=== PATIENT | female | born 1965 | race Caucasian/White ===

== ENCOUNTER 2020-10-26 16:32 | Emergency (ER) | payer BC ==
[2020-10-26 16:50] VITALS: BP 137/89; PULSE 80
--- NOTE | 2020-10-26 17:48 | EDM.PDOC ---
ED HPI GENERAL MEDICAL PROBLEM - General Chief Complaint: Abdominal Pain Stated Complaint: ABD PAIN, LT SIDE Time Seen by Provider: 10/26/20 17:20 Source of Information: Reports: Patient History Limitations: Reports: No Limitations - History of Present Illness INITIAL COMMENTS - FREE TEXT/NARRATIVE: 55-year-old female who developed lower abdominal pain yesterday, took some ibup rofen last night and it improved, she slept okay but today its been worsening. No nausea or vomiting, 2 normal bowel movements. Some chills last night. Denies shortness of breath or chest pain. Today she felt like something "moved" in her left lower quadrant twice and it scared her so she thought she should have it checked out. No recent trauma, no exposure to illness. Onset: Gradual Duration: Day(s): (2 days of symptoms) Location: Reports: Abdomen (Lower abdomen, particularly on the left) Quality: Reports: Pressure, Sharp, Other (Fullness, pain with moving) Worsens with: Reports: Movement Associated Symptoms: Reports: Fever/Chills (Likely chills and fever overnight, none today), Malaise. Denies: Cough, Diaphoresis, Loss of Appetite, Nausea/Vomiting, Shortness of Breath, Weakness Abdomen Pain Score (Numeric/FACES): 2 - Related Data Allergies Allergy/AdvReac Type Severity Reaction Status Date / Time Sulfa (Sulfonamide Allergy Shortness Verified 10/26/20 16:46 Antibiotics) of Breath Home Meds: Home Meds NK [No Known Home Meds] 07/19/14 [History] Past Medical History HEENT History: Reports: Impaired Vision Cardiovascular History: Reports: Arrhythmia INSIDE [employer] History: Reports: Musculoskeletal History: Reports: Fracture - Past Surgical History GI Surgical History: Reports: Cholecystectomy Female Surgical History: Reports: Tubal Ligation Musculoskeletal Surgical History: Reports: ORIF Other Musculoskeletal Surgeries/Procedures:: surgery right foot Social & Family History - Tobacco Use Tobacco Use Status *Q: Current Every Day Tobacco User Years of Tobacco use: 25 Packs/Tins Daily: 0.5 - Caffeine Use Caffeine Use: Reports: Coffee - Alcohol Use Days Per Week of Alcohol Use: 7 Number of Drinks Per Day: 2 Total Drinks Per Week: 14 - Recreational Drug Use Recreational Drug Use: No ED ROS GENERAL - Review of Systems Review Of Systems: See Below Constitutional: Reports: Fever, Chills, Malaise HEENT: Reports: No Symptoms Respiratory: Denies: Shortness of Breath, Cough Cardiovascular: Denies: Chest Pain Endocrine: Denies: Fatigue GI/Abdominal: Reports: Abdominal Pain. Denies: Constipation, Diarrhea, Hematemesis, Hematochezia, Nausea, Vomiting : Reports: No Symptoms. Denies: Frequency, Urgency Musculoskeletal: Reports: No Symptoms Skin: Reports: No Symptoms Neurological: Reports: No Symptoms. Denies: Headache Psychiatric: Reports: No Symptoms ED EXAM, GI/ABD - Physical Exam Exam: See Below Exam Limited By: No Limitations General Appearance: Alert, No Apparent Distress Eyes: Bilateral: Normal Appearance (No jaundice) Head: Atraumatic Neck: Supple, Non-Tender Respiratory/Chest: Lungs Clear Cardiovascular: Regular Rate, Rhythm GI/Abdominal Exam: Soft, Tender (Very tender across the lower abdomen, guarding and rebound is present in the left lower quadrant) Extremities: Normal Inspection Neurological: Alert, Oriented Psychiatric: Normal Affect, Normal Mood Course - Vital Signs Last Recorded V/S: Last Vital Signs Temp 97.9 F 10/26/20 16:49 Pulse 80 10/26/20 16:49 Resp 14 10/26/20 16:49 BP 137/89 10/26/20 16:49 Pulse Ox 97 10/26/20 16:49 - Orders/Labs/Meds Labs: Laboratory Tests 10/26/20 10/26/20 10/26/20 Range/Units 17:05 17:18 17:18 WBC 14.0 H (4.5-11.0) K/uL RBC 4.75 (3.30-5.50) M/uL Hgb 14.7 (12.0-15.0) g/dL Hct 42.1 (36.0-48.0) % MCV 89 (80-98) fL MCH 31 (27-31) pg MCHC 35 (32-36) % Plt Count 195 (150-400) K/uL Neut % (Auto) 74.7 H (36-66) % Lymph % (Auto) 19.2 L (24-44) % [place] % (Auto) 4.5 (2-6) % Eos % (Auto) 1.5 L (2-4) % Baso % (Auto) 0.1 (0-1) % Sodium 137 L (140-148) mmol/L Potassium 3.6 (3.6-5.2) mmol/L Chloride 103 (100-108) mmol/L Carbon Dioxide 24 (21-32) mmol/L Anion Gap 13.6 (5.0-14.0) mmol/L BUN 14 (7-18) mg/dL Creatinine 1.0 (0.6-1.0) mg/dL Est Cr Clr Drug Dosing 48.53 mL/min Estimated GFR (MDRD) 58 L (>60) Glucose 92 (74-106) mg/dL Calcium 8.2 L (8.5-10.1) mg/dL Urine Color Yellow (YELLOW) Urine Appearance Slightly cloudy A (CLEAR) Urine pH 5.5 (5.0-8.0) Ur Specific [place] 1.015 (1.008-1.030) Urine Protein Negative (NEGATIVE) mg/dL Urine Glucose (UA) Negative (NEGATIVE) mg/dL Urine Ketones Negative (NEGATIVE) mg/dL Urine Occult Blood Trace-lysed H (NEGATIVE) Urine Nitrite Negative (NEGATIVE) Urine Bilirubin Negative (NEGATIVE) Urine Urobilinogen 0.2 (0.2-1.0) EU/dL Ur Leukocyte Esterase Small H (NEGATIVE) Urine RBC 0-5 (0-5) Urine WBC 5-10 H (0-5) Ur Epithelial Cells Few Amorphous Sediment Not seen Urine Bacteria Many Urine Mucus Not seen Meds: Medications Discontinued Medications Generic Name Dose Route Start Last Admin Trade Name Freq PRN Reason Stop Dose Admin Cefoxitin Sodium 1 gm/ Sodium 50 mls @ 100 mls/hr 10/26/20 17:38 10/26/20 17: 46 Chloride IV 10/26/20 18:07 100 mls/hr ONETIME ONE Administration Metronidazole 500 mg 10/26/20 17:44 10/26/20 17:50 Metronidazole 250 Mg Tab PO 10/26/20 17:45 500 mg ONETIME ONE Administration - Re-Assessments/Exams Free Text/Narrative Re-Assessment/Exam: 10/26/20 17:48 CBC and UA were obtained, patient was sent back for a CT of the abdomen without contrast. 10/26/20 18:20 Results did show diverticulitis with a small amount of pneumoperitoneum. She is very stable and insisted on trying to be treated as an outpatient, I did discuss this with surgery and this is a reasonable option. She was given 1.5 mg of IV Unasyn, 500 mg of oral metronidazole, and will continue on metronidazole 3 times daily along with Ceftin 500 mg twice daily for 7 full days. Encouraged her to drink lots of water, stool softeners may be helpful, and she will return if she develops nausea or vomiting, increased pain or fever, or is failing as an outpatient. 10/26/20 18:27 FINDINGS: No abnormal intra pulmonary nodular densities through the lung bases. No evidence of pleural effusion. Normal size cardiac silhouette without any evidence of pericardial effusion. No focal hepatic or splenic pathology. No pancreatic pathology. Status post cholecystectomy. No adrenal pathology. No kidney stones or obstructive uropathy. No retroperitoneal lymphadenopathy. Normal appendix. Acute diverticulitis sigmoid colon. Small amount of pneumoperitoneum identified in the upper abdomen as well as several tiny gas bubbles identified within the mesenteric fat. no evidence of abdominal ascites . Impression : 1. Small amount of pneumoperitoneum most likely secondary to acute ruptured diverticulitis. 2. Acute diverticulitis sigmoid colon. 3. No intra-abdominal abscess. 4. Normal appendix. 5. No kidney stones or obstructive uropathy. 6. Status post cholecystectomy. Above findings were discussed with the patient and with surgery. We are going to try an outpatient course of antibiotics as above. Patient will return if worsening despite treatment. Departure - Departure Time of Disposition: 18:36 Disposition: Home, Self-Care 01 Clinical Impression: Diverticulitis Abdominal pain Qualifiers: Abdominal location: lower abdomen, unspecified Qualified Code(s): R10.30 - Lower abdominal pain, unspecified - Discharge Information Instructions: Diverticulitis, [id number] Referrals: Chris Laguerre MD [Primary Care Provider] - Forms: ED Department Discharge Care Plan Goals: Drink lots of water, take medication as prescribed until gone, and consider a stool softener or high-fiber diet for the next 1 to 2 weeks. Ibuprofen will help with pain, and return anytime if worsening despite treatment such as persistent fever, increased pain, or nausea or vomiting and unable to take the antibiotics. Sepsis Event Note (ED) - Evaluation Sepsis Screening Result: No Definite Risk
[2020-10-26] MEDS: metroNIDAZOLE 250 MG Tab PO ONE (17:50)
--- NOTE | 2020-10-26 17:57 | CRLCT ---
For Patients: As a result of the Century Cures Act, medical imaging exams and procedure reports are released immediately into your electronic medical record. You may view this report before your referring provider. If you have questions, please contact your health care provider. INDICATION: Lower abdominal pain. COMPARISON: None. TECHNIQUE: CT abdomen and pelvis without intravenous contrast; coronal and sagittal reformats. FINDINGS: No abnormal intra pulmonary nodular densities through the lung bases. No evidence of pleural effusion. Normal size cardiac silhouette without any evidence of pericardial effusion. No focal hepatic or splenic pathology. No pancreatic pathology. Status post cholecystectomy. No adrenal pathology. No kidney stones or obstructive uropathy. No retroperitoneal lymphadenopathy. Normal appendix. Acute diverticulitis sigmoid colon. Small amount of pneumoperitoneum identified in the upper abdomen as well as several tiny gas bubbles identified within the mesenteric fat. no evidence of abdominal ascites . Impression : 1. Small amount of pneumoperitoneum most likely secondary to acute ruptured diverticulitis. 2. Acute diverticulitis sigmoid colon. 3. No intra-abdominal abscess. 4. Normal appendix. 5. No kidney stones or obstructive uropathy. 6. Status post cholecystectomy. Please note that all CT scans at this facility use dose modulation, iterative reconstruction, and/or weight-based dosing when appropriate to reduce radiation dose to as low as reasonably achievable. Dictated by Sigrid Hardy MD @ 10/26/2020 5:56:43 PM (Electronically Signed)
== END 2020-10-26 18:35 | disposition home or self-care (01) ==
LOC: JP.ED 16:32
DX: K57.32 Diverticulitis of large intestine without perforation or abscess without bleeding (principal); Z88.2 Allergy status to sulfonamides; Z90.49 Acquired absence of other specified parts of digestive tract; Z72.0 Tobacco use
CPT/HCPCS: 36415; 74176; 80048; 81001; 85025; 96365; 99284-25; A9270-GY; J0694

== ENCOUNTER 2024-08-19 07:45 | Emergency (ER) | payer BC ==
[2024-08-19 08:17] LABS: BASOPHILS ABSOLUTE AUTO 0.04 K/uL (0.00-0.10); BASOPHILS PERCENT AUTO 0.3 % (0.1-1.3); EOSINOPHILS ABSOLUTE AUTO 0.10 K/uL (0.00-0.40); EOSINOPHILS PERCENT AUTO 0.7 % (0.0-5.4); IMMATURE GRAN ABSOLUTE AUTO 0.10 K/uL (0.00-0.23); IMMATURE GRAN PERCENT AUTO 0.7 % (0.0-0.7); LYMPHOCYTES ABSOLUTE AUTO 1.48 K/uL (0.8-3.3); LYMPHOCYTES PERCENT AUTO 10.3 % (11.4-47.7); MONOCYTES ABSOLUTE AUTO 0.72 K/uL (0.20-0.90); MONOCYTES PERCENT AUTO 5.0 % (3.3-12.6); NEUTROPHILS ABSOLUTE AUTO 11.97 K/uL (1.0-7.6); NEUTROPHILS PERCENT AUTO 83.0 % (40.0-78.1); PLATELET COUNT,PLT 207 K/uL (130-375); RED BLOOD CELL COUNT 4.68 M/uL (3.77-5.24); WHITE BLOOD CELL COUNT,WBC 14.4 K/uL (3.2-11.0)
[2024-08-19 08:39] LABS: A/G RATIO 0.8 (1.2-2.2); ALANINE AMINOTRANSFERASE,ALT 21 U/L (12-78); ASPARTATE AMNIOTRANSFERASE,AST 11 U/L (15-37); BILIRUBIN TOTAL 0.5 mg/dL (0.2-1.0); BLOOD UREA NITROGEN,BUN 11 mg/dL (7-18); CARBON DIOXIDE,CO2 25 mmol/L (21-32); CHLORIDE,CL 103 mmol/L (100-108); CREATININE 0.8 mg/dL (0.6-1.0); ESTIMATED GFR 85 mL/min (>60); GLUCOSE RANDOM 120 mg/dL (74-106); POTASSIUM,K 4.0 mmol/L (3.6-5.2); PROTEIN TOTAL,TP 7.3 g/dL (6.4-8.2); SODIUM,NA 136 mmol/L (140-148)
[2024-08-19] MEDS: Ketorolac 30 MG/ML SDV IVPUSH ONE (08:39)
[2024-08-19 10:07] LABS: APPEARANCE,URINE SLIGHTLY CLOUDY (CLEAR); GLUCOSE,URINE NEGATIVE (NEGATIVE); OCCULT BLOOD,URINE NEGATIVE (NEGATIVE)
[2024-08-19 10:19] LABS: EPITHELIAL CELLS,URINE MODERATE
[2024-08-19] MEDS: Ampicillin/Sulbactam Na 3 GM in Sodium Chloride 0.9% 100 ML IV ONE (10:27)
[2024-08-19] MEDS: Ondansetron 4 MG/2 ML SDV IVPUSH ONE (10:44)
[2024-08-19 11:43] VITALS: BP 140/69; PULSE 60
== END 2024-08-19 12:10 | disposition home or self-care (01) ==
LOC: JP.ED 07:45
DX: K57.92 Diverticulitis of intestine, part unspecified, without perforation or abscess without bleeding (principal); F17.200 Nicotine dependence, unspecified, uncomplicated; Z88.2 Allergy status to sulfonamides; Z90.49 Acquired absence of other specified parts of digestive tract
CPT/HCPCS: 36415; 74176; 80053; 81001; 83690; 85025; 96361; 96365; 96375; 96376; 99284; A9270; J0295; J1171; J1885; J7030

== ENCOUNTER 2024-08-21 18:50 | Inpatient (IN) | payer BC ==
[2024-08-21 20:16] LABS: BASOPHILS ABSOLUTE AUTO 0.03 K/uL (0.00-0.10); BASOPHILS PERCENT AUTO 0.2 % (0.1-1.3); CREATININE 0.8 mg/dL (0.5-1.0); EOSINOPHILS ABSOLUTE AUTO 0.06 K/uL (0.00-0.40); EOSINOPHILS PERCENT AUTO 0.3 % (0.0-5.4); EST CRCL DRUG DOSING (CG) 55.06 mL/min; ESTIMATED GFR 85.0 mL/min (>60); IMMATURE GRAN ABSOLUTE AUTO 0.21 K/uL (0.00-0.23); IMMATURE GRAN PERCENT AUTO 1.1 % (0.0-0.7); LYMPHOCYTES ABSOLUTE AUTO 0.56 K/uL (0.8-3.3); LYMPHOCYTES PERCENT AUTO 2.9 % (11.4-47.7); MONOCYTES ABSOLUTE AUTO 0.35 K/uL (0.20-0.90); MONOCYTES PERCENT AUTO 1.8 % (3.3-12.6); NEUTROPHILS ABSOLUTE AUTO 17.82 K/uL (1.0-7.6); NEUTROPHILS PERCENT AUTO 93.7 % (40.0-78.1); PLATELET COUNT,PLT 205 K/uL (130-375); RED BLOOD CELL COUNT 4.78 M/uL (3.77-5.24); WHITE BLOOD CELL COUNT,WBC 19.0 K/uL (3.2-11.0)
[2024-08-21] MEDS: Ampicillin/Sulbactam Na 3 GM in Sodium Chloride 0.9% 100 ML IV ONE (20:19)
[2024-08-21] MEDS: Ondansetron 4 MG/2 ML SDV IVPUSH ONE (20:19)
[2024-08-21] MEDS: Ketorolac 15 MG/ML SDV IVPUSH ONE (20:19)
[2024-08-21 20:20] LABS: APPEARANCE,URINE CLEAR (CLEAR); GLUCOSE,URINE NEGATIVE (NEGATIVE); OCCULT BLOOD,URINE MODERATE (NEGATIVE)
[2024-08-21 20:32] LABS: BLOOD UREA NITROGEN,BUN 11.0 mg/dL (7-18); CARBON DIOXIDE,CO2 25.0 mmol/L (21-32); CHLORIDE,CL 95.0 mmol/L (100-108); GLUCOSE RANDOM 105.0 mg/dL (74-106); POTASSIUM,K 3.7 mmol/L (3.6-5.2); SODIUM,NA 132.0 mmol/L (140-148)
[2024-08-21 20:36] LABS: EPITHELIAL CELLS,URINE FEW
[2024-08-21] MEDS: Iopamidol 612 MG/ML 100 ML Bottle IV SCH (20:45)
[2024-08-22] MEDS ORDERED: Ondansetron 4 MG/2 ML SDV IV PRN (01:40)
[2024-08-22] MEDS ORDERED: Naloxone 0.4 MG/ML SDV IVPUSH PRN (01:40)
[2024-08-22 06:05] LABS: BASOPHILS ABSOLUTE AUTO 0.03 K/uL (0.00-0.10); BASOPHILS PERCENT AUTO 0.2 % (0.1-1.3); EOSINOPHILS ABSOLUTE AUTO 0.12 K/uL (0.00-0.40); EOSINOPHILS PERCENT AUTO 0.7 % (0.0-5.4); IMMATURE GRAN ABSOLUTE AUTO 0.31 K/uL (0.00-0.23); IMMATURE GRAN PERCENT AUTO 1.8 % (0.0-0.7); LYMPHOCYTES ABSOLUTE AUTO 0.82 K/uL (0.8-3.3); LYMPHOCYTES PERCENT AUTO 4.7 % (11.4-47.7); MONOCYTES ABSOLUTE AUTO 0.52 K/uL (0.20-0.90); MONOCYTES PERCENT AUTO 3.0 % (3.3-12.6); NEUTROPHILS ABSOLUTE AUTO 15.57 K/uL (1.0-7.6); NEUTROPHILS PERCENT AUTO 89.6 % (40.0-78.1); PLATELET COUNT,PLT 193 K/uL (130-375); RED BLOOD CELL COUNT 3.94 M/uL (3.77-5.24); WHITE BLOOD CELL COUNT,WBC 17.4 K/uL (3.2-11.0)
[2024-08-22 06:29] LABS: BLOOD UREA NITROGEN,BUN 13.0 mg/dL (7-18); CARBON DIOXIDE,CO2 27.0 mmol/L (21-32); CHLORIDE,CL 102.0 mmol/L (100-108); CREATININE 0.8 mg/dL (0.6-1.0); EST CRCL DRUG DOSING (CG) 55.06 mL/min; ESTIMATED GFR 85.0 mL/min (>60); GLUCOSE RANDOM 79.0 mg/dL (74-106); POTASSIUM,K 3.5 mmol/L (3.6-5.2); SODIUM,NA 138.0 mmol/L (140-148)
[2024-08-22] MEDS: Piperacillin/Tazobactam/Dext 4.5 GM in Premix Bag 1 BAG IV SCH (14:15)
[2024-08-22] MEDS: Ketorolac 15 MG/ML SDV IVPUSH PRN (15:17)
[2024-08-23 05:34] LABS: PLATELET COUNT,PLT 193.0 K/uL (130-375); RED BLOOD CELL COUNT 4.04 M/uL (3.77-5.24); WHITE BLOOD CELL COUNT,WBC 14.0 K/uL (3.2-11.0)
[2024-08-23 05:42] LABS: BLOOD UREA NITROGEN,BUN 17.0 mg/dL (7-18); CARBON DIOXIDE,CO2 22.0 mmol/L (21-32); CHLORIDE,CL 104.0 mmol/L (100-108); CREATININE 0.8 mg/dL (0.6-1.0); EST CRCL DRUG DOSING (CG) 55.06 mL/min; ESTIMATED GFR 85.0 mL/min (>60); GLUCOSE RANDOM 83.0 mg/dL (74-106); POTASSIUM,K 4.1 mmol/L (3.6-5.2); SODIUM,NA 138.0 mmol/L (140-148)
[2024-08-24 05:45] LABS: PLATELET COUNT,PLT 199.0 K/uL (130-375); RED BLOOD CELL COUNT 3.73 M/uL (3.77-5.24); WHITE BLOOD CELL COUNT,WBC 12.1 K/uL (3.2-11.0)
[2024-08-25 05:46] LABS: PLATELET COUNT,PLT 222.0 K/uL (130-375); RED BLOOD CELL COUNT 3.61 M/uL (3.77-5.24); WHITE BLOOD CELL COUNT,WBC 13.5 K/uL (3.2-11.0)
[2024-08-25] MEDS: Sodium Chloride 0.9% 10 ML Syringe FLUSH PRN (06:00)
[2024-08-25] MEDS: Iopamidol 612 MG/ML 100 ML Bottle IV PRN (06:00)
[2024-08-26 05:47] LABS: PLATELET COUNT,PLT 237.0 K/uL (130-375); RED BLOOD CELL COUNT 3.57 M/uL (3.77-5.24); WHITE BLOOD CELL COUNT,WBC 15.6 K/uL (3.2-11.0)
[2024-08-26 06:08] LABS: BLOOD UREA NITROGEN,BUN 4.0 mg/dL (7-18); CARBON DIOXIDE,CO2 29.0 mmol/L (21-32); CHLORIDE,CL 103.0 mmol/L (100-108); CREATININE 0.7 mg/dL (0.6-1.0); GLUCOSE RANDOM 113.0 mg/dL (74-106); POTASSIUM,K 4.2 mmol/L (3.6-5.2); SODIUM,NA 139.0 mmol/L (140-148)
[2024-08-26 06:09] LABS: EST CRCL DRUG DOSING (CG) 62.92 mL/min; ESTIMATED GFR 100.0 mL/min (>60)
[2024-08-26] MEDS ORDERED: Ondansetron 4 MG/2 ML SDV ONE (10:55)
[2024-08-26] MEDS ORDERED: Dexamethasone 4 MG/ML SDV ONE (10:55)
[2024-08-26] MEDS ORDERED: Propofol 200 MG/20 ML SDV ONE (10:55)
[2024-08-26] MEDS ORDERED: Succinylcholine 200 MG/10 ML MDV ONE (10:55)
[2024-08-26] MEDS ORDERED: Glycopyrrolate 0.2 MG/ML 5 ML MDV ONE (10:55)
[2024-08-26] MEDS ORDERED: fentaNYL 250 MCG/5 ML SDV ONE (10:57)
[2024-08-26] MEDS: Methylene Blue 100 MG/10 ML SDV ONE (13:00)
[2024-08-26] MEDS: Bupivacaine 0.25%/EPINEPHrine 1:200,000 30 ML SDV ONE (13:15)
[2024-08-26] MEDS: Ketorolac 15 MG/ML SDV IVPUSH SCH (17:39)
[2024-08-27 05:30] LABS: PLATELET COUNT,PLT 321 K/uL (130-375); RED BLOOD CELL COUNT 2.23 M/uL (3.77-5.24); WHITE BLOOD CELL COUNT,WBC 25.5 K/uL (3.2-11.0)
[2024-08-27 06:37] LABS: BAND ABSOLUTE MAN 2.55 K/uL; BAND PERCENT MAN 10 % (5-11); LYMPHOCYTES ABSOLUTE MAN 1.79 K/uL (0.8-3.3); LYMPHOCYTES PERCENT MAN 7 % (24-44); METAMYELOCYTE ABSOLUTE MAN 1.28 K/uL; METAMYELOCYTE PERCENT MAN 5 %; MONOCYTES ABSOLUTE MAN 1.02 K/uL (0.20-0.90); MONOCYTES PERCENT MAN 4 % (2-6); MYELOCYTE ABSOLUTE MAN 1.02; MYELOCYTE PERCENT MAN 4 %; NEUTROPHILS ABSOLUTE MAN 17.85 K/uL (1.0-7.6); SEG NEUTROPHILS PERCENT MAN 70 % (36-66)
[2024-08-27 12:56] LABS: PLATELET COUNT,PLT 293.0 K/uL (130-375); RED BLOOD CELL COUNT 2.4 M/uL (3.77-5.24); WHITE BLOOD CELL COUNT,WBC 20.1 K/uL (3.2-11.0)
[2024-08-28 05:59] LABS: PLATELET COUNT,PLT 288 K/uL (130-375); RED BLOOD CELL COUNT 2.12 M/uL (3.77-5.24); WHITE BLOOD CELL COUNT,WBC 19.4 K/uL (3.2-11.0)
[2024-08-28 06:12] LABS: BLOOD UREA NITROGEN,BUN 10.0 mg/dL (7-18); CARBON DIOXIDE,CO2 28.0 mmol/L (21-32); CHLORIDE,CL 105.0 mmol/L (100-108); CREATININE 0.7 mg/dL (0.6-1.0); EST CRCL DRUG DOSING (CG) 62.92 mL/min; ESTIMATED GFR 100.0 mL/min (>60); GLUCOSE RANDOM 93.0 mg/dL (74-106); POTASSIUM,K 3.3 mmol/L (3.6-5.2); SODIUM,NA 139.0 mmol/L (140-148)
[2024-08-28 06:23] LABS: ATYPICAL LYMPHOCYTES FEW; EOSINOPHILS ABSOLUTE MAN 0.39 K/uL (0.00-0.40); EOSINOPHILS PERCENT MAN 2 % (2-4); LYMPHOCYTES ABSOLUTE MAN 3.69 K/uL (0.8-3.3); LYMPHOCYTES PERCENT MAN 19 % (24-44); MONOCYTES ABSOLUTE MAN 0.97 K/uL (0.20-0.90); MONOCYTES PERCENT MAN 5 % (2-6); NEUTROPHILS ABSOLUTE MAN 14.36 K/uL (1.0-7.6); SEG NEUTROPHILS PERCENT MAN 74 % (36-66)
[2024-08-28] MEDS: Potassium Chloride 20 MEQ Tab.ER PO ONE (09:47)
[2024-08-29 06:03] LABS: PLATELET COUNT,PLT 302.0 K/uL (130-375); RED BLOOD CELL COUNT 2.57 M/uL (3.77-5.24); WHITE BLOOD CELL COUNT,WBC 21.7 K/uL (3.2-11.0)
[2024-08-29] MEDS: Sodium Chloride 0.9% 10 ML Syringe FLUSH ONE (10:30)
[2024-08-29] MEDS: Iopamidol 612 MG/ML 100 ML Bottle IV SCH (10:30)
[2024-08-29] MEDS: Potassium Chloride 20 MEQ Tab.ER PO ONE ×3 (13:59→16:21)
[2024-08-29] MEDS: Furosemide 20 MG/2 ML VIAL IVPUSH ONE (14:00)
[2024-08-30 05:51] LABS: BASOPHILS ABSOLUTE AUTO 0.06 K/uL (0.00-0.10); BASOPHILS PERCENT AUTO 0.3 % (0.1-1.3); EOSINOPHILS ABSOLUTE AUTO 0.22 K/uL (0.00-0.40); EOSINOPHILS PERCENT AUTO 1.1 % (0.0-5.4); IMMATURE GRAN ABSOLUTE AUTO 0.96 K/uL (0.00-0.23); IMMATURE GRAN PERCENT AUTO 4.6 % (0.0-0.7); LYMPHOCYTES ABSOLUTE AUTO 1.96 K/uL (0.8-3.3); LYMPHOCYTES PERCENT AUTO 9.5 % (11.4-47.7); MONOCYTES ABSOLUTE AUTO 0.63 K/uL (0.20-0.90); MONOCYTES PERCENT AUTO 3.0 % (3.3-12.6); NEUTROPHILS ABSOLUTE AUTO 16.83 K/uL (1.0-7.6); NEUTROPHILS PERCENT AUTO 81.5 % (40.0-78.1); PLATELET COUNT,PLT 339 K/uL (130-375); RED BLOOD CELL COUNT 2.59 M/uL (3.77-5.24); WHITE BLOOD CELL COUNT,WBC 20.7 K/uL (3.2-11.0)
[2024-08-30 06:06] LABS: BLOOD UREA NITROGEN,BUN 6.0 mg/dL (7-18); CARBON DIOXIDE,CO2 28.0 mmol/L (21-32); CHLORIDE,CL 103.0 mmol/L (100-108); CREATININE 0.7 mg/dL (0.6-1.0); EST CRCL DRUG DOSING (CG) 62.92 mL/min; ESTIMATED GFR 100.0 mL/min (>60); GLUCOSE RANDOM 103.0 mg/dL (74-106); POTASSIUM,K 3.5 mmol/L (3.6-5.2); SODIUM,NA 137.0 mmol/L (140-148)
[2024-08-30] MEDS: Potassium Chloride 20 MEQ Tab.ER PO ONE ×2 (09:02→16:20)
[2024-08-30] MEDS: Fluconazole/Normal Saline 200 MG in Premix Bag 1 BAG IV SCH (10:04)
[2024-08-30] MEDS: Furosemide 20 MG/2 ML VIAL IVPUSH ONE (12:28)
[2024-08-31 05:22] LABS: BASOPHILS ABSOLUTE AUTO 0.04 K/uL (0.00-0.10); BASOPHILS PERCENT AUTO 0.2 % (0.1-1.3); EOSINOPHILS ABSOLUTE AUTO 0.22 K/uL (0.00-0.40); EOSINOPHILS PERCENT AUTO 1.2 % (0.0-5.4); IMMATURE GRAN ABSOLUTE AUTO 0.74 K/uL (0.00-0.23); IMMATURE GRAN PERCENT AUTO 3.9 % (0.0-0.7); LYMPHOCYTES ABSOLUTE AUTO 1.88 K/uL (0.8-3.3); LYMPHOCYTES PERCENT AUTO 10.0 % (11.4-47.7); MONOCYTES ABSOLUTE AUTO 0.70 K/uL (0.20-0.90); MONOCYTES PERCENT AUTO 3.7 % (3.3-12.6); NEUTROPHILS ABSOLUTE AUTO 15.27 K/uL (1.0-7.6); NEUTROPHILS PERCENT AUTO 81.0 % (40.0-78.1); PLATELET COUNT,PLT 372 K/uL (130-375); RED BLOOD CELL COUNT 2.70 M/uL (3.77-5.24); WHITE BLOOD CELL COUNT,WBC 18.9 K/uL (3.2-11.0)
[2024-08-31] MEDS: Furosemide 40 MG/4 ML VIAL IVPUSH ONE (08:43)
[2024-08-31] MEDS: Fluconazole/Normal Saline 100 MG in Premix Bag 1 BAG IV SCH (10:52)
[2024-09-01 05:26] LABS: BASOPHILS ABSOLUTE AUTO 0.04 K/uL (0.00-0.10); BASOPHILS PERCENT AUTO 0.2 % (0.1-1.3); EOSINOPHILS ABSOLUTE AUTO 0.26 K/uL (0.00-0.40); EOSINOPHILS PERCENT AUTO 1.3 % (0.0-5.4); IMMATURE GRAN ABSOLUTE AUTO 0.42 K/uL (0.00-0.23); IMMATURE GRAN PERCENT AUTO 2.1 % (0.0-0.7); LYMPHOCYTES ABSOLUTE AUTO 1.72 K/uL (0.8-3.3); LYMPHOCYTES PERCENT AUTO 8.6 % (11.4-47.7); MONOCYTES ABSOLUTE AUTO 0.67 K/uL (0.20-0.90); MONOCYTES PERCENT AUTO 3.3 % (3.3-12.6); NEUTROPHILS ABSOLUTE AUTO 16.94 K/uL (1.0-7.6); NEUTROPHILS PERCENT AUTO 84.5 % (40.0-78.1); PLATELET COUNT,PLT 468 K/uL (130-375); RED BLOOD CELL COUNT 2.92 M/uL (3.77-5.24); WHITE BLOOD CELL COUNT,WBC 20.1 K/uL (3.2-11.0)
[2024-09-01 05:42] LABS: BLOOD UREA NITROGEN,BUN 11.0 mg/dL (7-18); CARBON DIOXIDE,CO2 26.0 mmol/L (21-32); CHLORIDE,CL 101.0 mmol/L (100-108); CREATININE 0.8 mg/dL (0.6-1.0); EST CRCL DRUG DOSING (CG) 55.06 mL/min; ESTIMATED GFR 85.0 mL/min (>60); GLUCOSE RANDOM 110.0 mg/dL (74-106); POTASSIUM,K 4.0 mmol/L (3.6-5.2); SODIUM,NA 136.0 mmol/L (140-148)
[2024-09-01] MEDS: Furosemide 40 MG/4 ML VIAL IVPUSH ONE (10:22)
[2024-09-02 05:31] LABS: BASOPHILS ABSOLUTE AUTO 0.05 K/uL (0.00-0.10); BASOPHILS PERCENT AUTO 0.3 % (0.1-1.3); EOSINOPHILS ABSOLUTE AUTO 0.27 K/uL (0.00-0.40); EOSINOPHILS PERCENT AUTO 1.4 % (0.0-5.4); IMMATURE GRAN ABSOLUTE AUTO 0.45 K/uL (0.00-0.23); IMMATURE GRAN PERCENT AUTO 2.4 % (0.0-0.7); LYMPHOCYTES ABSOLUTE AUTO 1.79 K/uL (0.8-3.3); LYMPHOCYTES PERCENT AUTO 9.5 % (11.4-47.7); MONOCYTES ABSOLUTE AUTO 0.84 K/uL (0.20-0.90); MONOCYTES PERCENT AUTO 4.4 % (3.3-12.6); NEUTROPHILS ABSOLUTE AUTO 15.48 K/uL (1.0-7.6); NEUTROPHILS PERCENT AUTO 82.0 % (40.0-78.1); PLATELET COUNT,PLT 509 K/uL (130-375); RED BLOOD CELL COUNT 3.05 M/uL (3.77-5.24); WHITE BLOOD CELL COUNT,WBC 18.9 K/uL (3.2-11.0)
[2024-09-02 05:50] LABS: BLOOD UREA NITROGEN,BUN 14.0 mg/dL (7-18); CARBON DIOXIDE,CO2 27.0 mmol/L (21-32); CHLORIDE,CL 102.0 mmol/L (100-108); CREATININE 0.8 mg/dL (0.6-1.0); EST CRCL DRUG DOSING (CG) 55.06 mL/min; ESTIMATED GFR 85.0 mL/min (>60); GLUCOSE RANDOM 109.0 mg/dL (74-106); POTASSIUM,K 3.8 mmol/L (3.6-5.2); SODIUM,NA 136.0 mmol/L (140-148)
[2024-09-02] MEDS: Iopamidol 612 MG/ML 100 ML Bottle IV ONE (07:33)
[2024-09-02] MEDS: Sodium Chloride 0.9% 10 ML Syringe FLUSH ONE (07:35)
[2024-09-03 05:56] LABS: PLATELET COUNT,PLT 557.0 K/uL (130-375); RED BLOOD CELL COUNT 3.03 M/uL (3.77-5.24); WHITE BLOOD CELL COUNT,WBC 15.7 K/uL (3.2-11.0)
[2024-09-04 05:04] LABS: PLATELET COUNT,PLT 553.0 K/uL (130-375); RED BLOOD CELL COUNT 3.05 M/uL (3.77-5.24); WHITE BLOOD CELL COUNT,WBC 14.1 K/uL (3.2-11.0)
[2024-09-05 05:08] VITALS: BP 147/78; PULSE 80
[2024-09-05 05:28] LABS: PLATELET COUNT,PLT 567.0 K/uL (130-375); RED BLOOD CELL COUNT 3.21 M/uL (3.77-5.24); WHITE BLOOD CELL COUNT,WBC 12.7 K/uL (3.2-11.0)
== END 2024-09-05 11:00 | disposition home or self-care (01) | DRG 244 ==
LOC: JP.ED 18:50 → JP.ICU 23:58
PROVIDERS: ADMIT Nurse Practitioner; ATTEND Internal Medicine
PROC: 0W9G40Z Drainage of Peritoneal Cavity with Drainage Device, Percutaneous Endoscopic Approach (ICD-10-PCS; principal; 2024-08-26 12:00)
PROC: 30233N1 Transfusion of Nonautologous Red Blood Cells into Peripheral Vein, Percutaneous Approach (ICD-10-PCS; 2024-08-27)
DX: K57.20 Diverticulitis of large intestine with perforation and abscess without bleeding (principal); K65.1 Peritoneal abscess; D62 Acute posthemorrhagic anemia; H54.7 Unspecified visual loss; E87.6 Hypokalemia; G47.33 Obstructive sleep apnea (adult) (pediatric); K76.89 Other specified diseases of liver; F17.200 Nicotine dependence, unspecified, uncomplicated; Z87.81 Personal history of (healed) traumatic fracture; Z98.890 Other specified postprocedural states; Z88.2 Allergy status to sulfonamides; Z98.49 Cataract extraction status, unspecified eye; Z98.51 Tubal ligation status
CPT/HCPCS: 00840-QZ; 36415; 36430; 74177; 74177-26; 80048; 80202; 81001; 83605; 83735; 85018; 85025; 85027; 86140; 86850; 86900; 86901; 86920; 86922; 87040; 96365; 96375; 99223; 99231; 99232; 99239; 99285; 99285-25; A9270-GY; J0295; J0330; J1100; J1171; J1450; J1596; J1650; J1885; J1938; J2185; J2405; J2470; J2543; J2704; J2710; J3010; J3373; J3480; J3490; J7030; J7050; P9016; Q9967; Q9968

== ENCOUNTER 2024-10-21 06:22 | Day surgery (SDC) | payer BC ==
[2024-10-21] MEDS ORDERED: fentaNYL 50 MCG/ML SDV ONE (06:57)
[2024-10-21] MEDS ORDERED: Midazolam 1 MG/ML 2 ML SDV ONE (06:57)
[2024-10-21] MEDS ORDERED: Propofol 200 MG/20 ML SDV ONE ×2 (06:57→07:46)
[2024-10-21] MEDS: Lactated Ringers 1,000 ML IV SCH (07:19)
[2024-10-21] MEDS ORDERED: Lactated Ringers 1,000 ML ONE (08:03)
[2024-10-21 08:57] VITALS: BP 132/76; PULSE 62
== END 2024-10-21 09:03 | disposition home or self-care (01) ==
LOC: JP.SDS 06:22
PROVIDERS: ATTEND Surgery
DX: K57.30 Diverticulosis of large intestine without perforation or abscess without bleeding (principal); F17.200 Nicotine dependence, unspecified, uncomplicated; Z88.8 Allergy status to other drugs, medicaments and biological substances
CPT/HCPCS: 00811-QZ; J2250; J2704; J3010; J7120

== ENCOUNTER 2024-12-17 06:30 | Inpatient (IN) | payer BC ==
[~2024-12-17 06:30] MED LIST: Heparin Sodium 5,000 Units/ML Vial SUBCUT ONE
[2024-12-17] MEDS: Scopalamine 1mg/3day Transdermal Patch TOP SCH (07:07)
[2024-12-17] MEDS ORDERED: Glycopyrrolate 0.2 MG/ML 5 ML MDV ONE (07:21)
[2024-12-17] MEDS ORDERED: fentaNYL 250 MCG/5 ML SDV ONE ×2 (07:21→10:15)
[2024-12-17] MEDS ORDERED: Ondansetron 4 MG/2 ML SDV ONE (07:21)
[2024-12-17] MEDS ORDERED: Propofol 200 MG/20 ML SDV ONE (07:21)
[2024-12-17] MEDS ORDERED: Succinylcholine 200 MG/10 ML MDV ONE (07:21)
[2024-12-17] MEDS ORDERED: Dexamethasone 4 MG/ML SDV ONE (07:21)
[2024-12-17] MEDS: Heparin Sodium 5,000 Units/ML Vial SUBCUT ONE (07:30)
[2024-12-17] MEDS ORDERED: Lactated Ringers 1,000 ML IV SCH (07:45)
[2024-12-17] MEDS: metroNIDAZOLE/Normal Saline 500 MG in Premix Bag 1 BAG IV ONE (09:09)
[2024-12-17] MEDS: Bupivacaine 0.25%/EPINEPHrine 1:200,000 30 ML SDV ONE (10:12)
[2024-12-17] MEDS ORDERED: Lactated Ringers 1,000 ML ONE (10:53)
[2024-12-17] MEDS ORDERED: Ondansetron 4 MG/2 ML SDV IV PRN (13:39)
[2024-12-17] MEDS ORDERED: Non-Formulary Medication 1 Each (Fluticasone Propionate [Flonase Allergy Relief] 9.9 ML Sp NAS PRN (13:41)
[2024-12-17] MEDS: SCOPOLAMINE PATCH TOP SCH (14:26)
[2024-12-17] MEDS: Ketorolac 15 MG/ML SDV IVPUSH SCH (14:36)
[2024-12-17] MEDS: Heparin Sodium 5,000 Units/ML Vial SUBCUT SCH (15:35)
[2024-12-17] MEDS ORDERED: Simethicone 125 MG Tab.Chew PO PRN (16:10)
[2024-12-17] MEDS: metroNIDAZOLE/Normal Saline 500 MG in Premix Bag 1 BAG IV SCH (16:59)
[2024-12-18] MEDS: Heparin Sodium 5,000 Units/ML Vial SUBCUT SCH (05:21)
[2024-12-19 05:55] LABS: BASOPHILS ABSOLUTE AUTO 0.04 K/uL (0.00-0.10); BASOPHILS PERCENT AUTO 0.4 % (0.1-1.3); EOSINOPHILS ABSOLUTE AUTO 0.14 K/uL (0.00-0.40); EOSINOPHILS PERCENT AUTO 1.6 % (0.0-5.4); IMMATURE GRAN ABSOLUTE AUTO 0.11 K/uL (0.00-0.23); IMMATURE GRAN PERCENT AUTO 1.2 % (0.0-0.7); LYMPHOCYTES ABSOLUTE AUTO 2.30 K/uL (0.8-3.3); LYMPHOCYTES PERCENT AUTO 25.6 % (11.4-47.7); MONOCYTES ABSOLUTE AUTO 0.34 K/uL (0.20-0.90); MONOCYTES PERCENT AUTO 3.8 % (3.3-12.6); NEUTROPHILS ABSOLUTE AUTO 6.06 K/uL (1.0-7.6); NEUTROPHILS PERCENT AUTO 67.4 % (40.0-78.1); PLATELET COUNT,PLT 172 K/uL (130-375); RED BLOOD CELL COUNT 4.14 M/uL (3.77-5.24); WHITE BLOOD CELL COUNT,WBC 9.0 K/uL (3.2-11.0)
[2024-12-19 06:10] LABS: BLOOD UREA NITROGEN,BUN 7.0 mg/dL (7-18); CARBON DIOXIDE,CO2 24.0 mmol/L (21-32); CHLORIDE,CL 101.0 mmol/L (100-108); CREATININE 0.7 mg/dL (0.6-1.0); EST CRCL DRUG DOSING (CG) 66.1 mL/min; ESTIMATED GFR 100.0 mL/min (>60); GLUCOSE RANDOM 89.0 mg/dL (74-106); POTASSIUM,K 3.8 mmol/L (3.6-5.2); SODIUM,NA 133.0 mmol/L (140-148)
[2024-12-19 11:41] VITALS: BP 151/83; PULSE 53
== END 2024-12-19 13:30 | disposition home or self-care (01) | DRG 221 ==
LOC: JP.SDSSCHI 06:30 → JP.MS 14:24
PROVIDERS: ADMIT Surgery; ATTEND Surgery
PROC: 0DBN4ZZ Excision of Sigmoid Colon, Percutaneous Endoscopic Approach (ICD-10-PCS; 2024-12-17)
PROC: 8E0W4CZ Robotic Assisted Procedure of Trunk Region, Percutaneous Endoscopic Approach (ICD-10-PCS; 2024-12-17)
PROC: 3E03329 Introduction of Other Anti-infective into Peripheral Vein, Percutaneous Approach (ICD-10-PCS; 2024-12-17)
PROC: 0DBL4ZZ Excision of Transverse Colon, Percutaneous Endoscopic Approach (ICD-10-PCS; principal; 2024-12-17 08:10)
DX: K57.32 Diverticulitis of large intestine without perforation or abscess without bleeding (principal); M19.90 Unspecified osteoarthritis, unspecified site; F17.210 Nicotine dependence, cigarettes, uncomplicated; H54.7 Unspecified visual loss; J30.2 Other seasonal allergic rhinitis; F32.A Depression, unspecified; Z98.890 Other specified postprocedural states; Z90.49 Acquired absence of other specified parts of digestive tract; Z87.81 Personal history of (healed) traumatic fracture; Z79.899 Other long term (current) drug therapy; Z79.51 Long term (current) use of inhaled steroids; Z88.1 Allergy status to other antibiotic agents; Z98.51 Tubal ligation status
CPT/HCPCS: 36415; 80048; 85025; A9270-GY; C1889; J0330; J0696; J1100; J1596; J1644; J1836; J1885; J2405; J2470; J2704; J2710; J3010; J3490; J7030; J7120